=== PATIENT | male | born 1950 | race Caucasian/White ===

== ENCOUNTER 2022-10-10 13:17 | Outpatient (CLI) | payer MEDICARE, SELFPAY ==
--- NOTE | 2022-10-10 13:45 | ECG_ITS ---
Measurements Intervals [place] Rate: 63 P: -24 OR: 235 QRS: -2 QRSD: 102 T: 28 QT: 370 QTc: 382 Interpretive Statements SINUS RHYTHM WITH FIRST DEGREE AV BLOCK BORDERLINE ECG NO PREVIOUS ECG AVAILABLE FOR COMPARISON Electronically Signed On 10-10-2022 14:01:31 CDT by Rahul Gilliland D.O.
== END 2022-10-10 13:18 | disposition home or self-care (01) ==
LOC: ANHSURGERY 13:24
PROVIDERS: Visit Provider Surgery
DX: K40.90 Unilateral inguinal hernia, without obstruction or gangrene, not specified as recurrent (principal); I10 Essential (primary) hypertension; Z01.818 Encounter for other preprocedural examination; I44.0 Atrioventricular block, first degree
CPT/HCPCS: 36415; 86850; 86900; 86901; 93005

== ENCOUNTER 2022-10-13 00:19 | Day surgery (SDC) | payer MEDICARE, SELFPAY ==
--- NOTE | 2022-10-06 13:42 | PC.NURSE ---
Report to the Outpatient Waiting Room, entrance under the green pavilion located off [facility], at time _1230 on date ___10/13/22____. Planned Procedure Time: __1430 . Time changes happen often and if your time is changed the preop area will call you the afternoon before. - You and your visitor will be asked to self-screen and do not enter if you have any COVID symptoms. - Only one visitor is requested with a max of two and NO children visitors are allowed at this time. - The patient visitor may be requested to leave or wait in car when not with patient due to distancing restrictions. - A mask is optional within the hospital at this time. Patients may have clear liquids (water, carbonated beverages, clear teas, apple juice) until 3 hours prior to surgery with a maximum of 20 ounces. - No food from midnight until time of surgery - Infants may have breast milk until 4 hours before surgery, formula 6 hours prior to surgery. - Children will be allowed to drink immediately following surgery. If applicable, please bring a bottle or sippy cup to assist with drinking. Juice, water, soda, and popsicles are readily available. For infants on formula, please bring formula the day of surgery. Pacifiers are allowed. Take the following medications with a SIP of water the morning of surgery: __NONE DO NOT STOP ANY OF YOUR OTHER PRESCRIPTION MEDICATIONS PRIOR TO SURGERY ?EXCEPT THE FOLLOWING Medications to discontinue per physician ALL VITAMINS/SUPPLEMENTS 3 DAYS PRE OP.LAST DOSE 10/09/22__DICLOFENAC PER DR CORONA HIBICLENS SHOWER MORNING OF SURGERY Please no make-up, nail maltese, hairspray, perfume, deodorant, or body powder the day of surgery. No jewelry (including any body piercings) or valuables the day of surgery, leave them at home. Please take a shower or bath the night before, or the morning of, surgery with an antibacterial soap. Wear comfortable, loose fitting clothing. Children are encouraged to wear pajamas. - Jewelry must be removed prior to entering the operating room. Rings and piercings that are not removed may be cut off. - The hospital will not accept responsibility for valuables. - Please leave all valuables, including medications, at home the day of surgery. If you are going home after surgery, a licensed furniture delivery driver must drive you home. - NO public transportation without another adult if you receive anesthesia. - We recommend that an adult stay with you for 24 hours following discharge. - We also recommend that you do not drive, make important decision, drink alcoholic beverages, or take any drugs that were not prescribed by your health care provider for at least 24 hours after your discharge time. Follow any additional instructions given to you from your surgeon. If you or anyone in your household have experienced Covid symptoms in the past week, please notify your surgeon or the nurse liaison at the phone number below for possible testing. Telephone instructions given to __PATIENT and asked if any additional questions and then verbalized understanding. Patient advised to call surgeon office or pre surgery nurse liaison [phone] if any additional questions.
[2022-10-06 13:52] VITALS: BMI 27.5
[2022-10-13] VITALS (8 sets, daily range): BP systolic 138–154; BP diastolic 62–82; PULSE 58–78; RESP 13–16; TEMP 36.3–36.8; O2SAT 98–100
--- NOTE | 2022-10-13 11:45 | PM.IMHP ---
H&P: HPI History of Present Illness Date/Time: 10/13/22 11:45 Chief Complaint: right inguinal hernia Narrative: Pt is a 72 y/o M presenting c R groin bulging, discomfort over last few mos. Pt reports sx progressively worse and now c sx daily. Pt reports sx worse as day goes along and c activity. Pt denies any obstructive sx. Pt had U/S done in [place] confirming RIH. Review of Systems Review of Systems: All systems reviewed & are unremarkable except as noted in HPI and below PMFSH Social History Social History Smoking packs per day: 1 Smoking cigarettes per day: 20.0 Years smoked: 6 Smoking pack-years: 6.00 Smoking status: Former smoker Tobacco type: cigarettes Smoking end date: 07/24/69 Living arrangements: with family Spiritual care concerns: No Comments PMH - HTN, Gout, BPH, GERD, hyperlipidemia PSxH - knee replacement FH - no hernia, no CRC Meds Home Medications and Allergies Home Medications Medication Instructions Recorded Confirmed Type allopurinol 300 mg tablet 300 mg PO DAILY 10/06/22 10/06/22 History diclofenac sodium 75 mg 75 mg PO BID 10/06/22 10/06/22 History tablet,delayed release doxazosin 8 mg tablet 8 mg PO HS 10/06/22 10/06/22 History finasteride 5 mg tablet 5 mg PO DAILY 10/06/22 10/06/22 History multivitamin with minerals 1 tablet PO DAILY 10/06/22 10/06/22 History olmesartan 40 mg tablet 40 mg PO HS 10/06/22 10/06/22 History omega-3 fatty acids 1,000 mg PO BID 10/06/22 10/06/22 History pantoprazole 40 mg tablet,delayed 40 mg PO HS 10/06/22 10/06/22 History release simvastatin 20 mg tablet 20 mg PO HS 10/06/22 10/06/22 History Allergies Allergy/AdvReac Type Severity Reaction Status Date / Time No Known Allergies Allergy Verified 10/06/22 13:27 Exam Const: General: cooperative, comfortable and no acute distress Resp: Auscultation: clear to auscultation bilaterally Cardio: Rate: regular rate Rhythm: regular rhythm GI: Inspection: normal to inspection and non-distended GI Palp: No abdominal tenderness, Yes Soft to palpation, No Tenderness to palpation present (GI), No Guarding due to palpation present (GI), No Rigid due to palpation and Yes Hernia present Other: RIH - reducible Assessment and Plan Assessment and plan (1) Right inguinal hernia: Code(s): K40.90 - Unilateral inguinal hernia, without obstruction or gangrene, not specified as recurrent Status: Acute Assessment and Plan: setup for robotic assisted repair c mesh (2) Hypertension: Code(s): I10 - Essential (primary) hypertension Status: Acute Assessment and Plan: stable, cont home meds (3) GERD (gastroesophageal reflux disease): Code(s): K21.9 - Gastro-esophageal reflux disease without esophagitis Status: Acute Assessment and Plan: stable, cont home meds
[2022-10-13] MEDS: ACETAMINOPHEN 500 MG TABLET 1000 MG PO (12:56)
[2022-10-13] MEDS: KETOROLAC 15 MG/ML VIAL (*BKC) IV PUSH (12:57)
--- NOTE | 2022-10-13 13:00 | P.PNAN_ITS ---
Anes - Initial Pre Proc Eval Procedure: Operation Date: 10/13/22 14:30 Proposed Procedures p Robotic Assisted Laparoscopic Right Inguinal Hernia Repair with Mesh - Rica Self MD Date/Time: 10/13/22 13:00 Surgeon: Rica Self MD Pre Op Diagnosis: inguinal hernia Patient Data Age: 72 Gender: M Height: 1.82 m Weight: 90.75 kg Allergies Allergy/AdvReac Type Severity Reaction Status Date / Time No Known Allergies Allergy Verified 10/06/22 13:27 Home Medications Medication Instructions Recorded Confirmed Type allopurinol 300 mg tablet 300 mg PO DAILY 10/06/22 10/06/22 History diclofenac sodium 75 mg 75 mg PO BID 10/06/22 10/06/22 History tablet,delayed release doxazosin 8 mg tablet 8 mg PO HS 10/06/22 10/06/22 History finasteride 5 mg tablet 5 mg PO DAILY 10/06/22 10/06/22 History multivitamin with minerals 1 tablet PO DAILY 10/06/22 10/06/22 History olmesartan 40 mg tablet 40 mg PO HS 10/06/22 10/06/22 History omega-3 fatty acids 1,000 mg PO BID 10/06/22 10/06/22 History pantoprazole 40 mg tablet,delayed 40 mg PO HS 10/06/22 10/06/22 History release simvastatin 20 mg tablet 20 mg PO HS 10/06/22 10/06/22 History Patient hx anesthesia problems: none Family hx anesthesia problems: none Results Review: All pre-operative results and documents have been reviewed as part of the pre- operative evaluation. [facility] Social History Social History Smoking packs per day: 1 Smoking cigarettes per day: 20.0 Years smoked: 6 Smoking pack-years: 6.00 Smoking status: Former smoker Tobacco type: cigarettes Smoking end date: 07/24/69 Living arrangements: with family Spiritual care concerns: No Anes - Eval Final PreProcedure Day of Procedure 10/13/22 13:00 Patient weight: overweight Heart: regular rate and rhythm Lungs: clear to auscultation Airway: Mallampati scale class II and other (implants) Neurological: alert and oriented Last oral intake: >/= 8 hours ASA classification: II Emergent: no Anesthetic plan: proceed Anesthesia type and monitoring: general ETT and standard monitoring Results Review: All pre-operative results and documents have been reviewed as part of the pre- operative evaluation. Informed Consent: The patient's anesthetic plan and its attendant risks and benefits were discussed with the patient/family/POA. Questions were solicited and answers provided to the satisfaction of the patient/family/POA.
[2022-10-13] MEDS: LACTATED RINGERS 1,000 ML 30 ML IV CONT ×2 (13:03→16:36)
--- NOTE | 2022-10-13 14:25 | WPDHPUPDATE1 ---
History and Physical Update Update Date/Time: 10/13/22 14:25 History and Physical has been reviewed, including an updated exam of the patient. There are NO changes in the patient's condition. Risks, benefits, and alternatives have been discussed and questions answered. Patient agrees to proceed with procedure.
[2022-10-13] MEDS: ceFAZolin 2 GM/D5W 50 ML 2 GM/50 ML BAG IVPB (15:02)
[2022-10-13] MEDS: BUPIVACAINE/EPINEPHRINE 0.25% 50 ML VIAL 30 ML INFILTRATE (15:41)
--- NOTE | 2022-10-13 16:28 | W.PM.PROC2 ---
Procedure Note - Detailed Date of Procedure 10/13/22 Pre-op Diagnosis right inguinal hernia Post-op Diagnosis Same Procedure Performed robotic assisted right inguinal hernia repair with mesh Surgeon Rica Self MD Anesthesia General Indications 72-year-old male with progressively worsening right inguinal hernia over the last few months Findings large indirect right inguinal hernia Description of Procedure Patient was brought into the operating room and placed in the supine position. After adequate induction of general anesthesia, the patient was prepped and draped in normal sterile fashion. A time-out was then done to verify the patient's identity, as well as the procedure being performed. Began by making a 8 mm incision in the supraumbilical region, a Veress needle was then placed into the peritoneal cavity. CO2 gas was then insufflated and after adequate pneumoperitoneum was achieved, the Veress needle was removed. I then placed an 8 mm trocar through this incision. I then placed the endoscope through this trocar site and under direct visualization placed 2 further 8 mm ports in the right and left mid abdomen. The [id number] robot was then docked to the 3 trocar sites. I then scrubbed out and went to the robotic console. Upon examining the pelvis, it was noted that the patient had a large right inguinal hernia. The left side was examined and no hernia defect was noted. I began by making a preperitoneal flap approximately 6 cm superior to the defect. This flap was carried medially past the umbilical ligaments in laterally to the transversalis. It then began dissection of my medial compartment taking this down to the pubic tubercle. I then began the lateral dissection taking this down to the transversalis fascia. Once these compartments were achieved, I began dissection around the cord structures. A large indirect hernia was noted at this point. Using careful dissection, was able to reduce indirect hernia sac off the cord structures. Once this was adequately done, I went ahead and placed a large piece of 3D Max mesh into the abdominal cavity. The mesh was carefully positioned, centering the center of the mesh over the indirect defect. Once this was done, was very satisfied with our repair. Using 3-0 Vicryl sutures, I tacked the mesh medially to Jaren's ligament. Two lateral sutures were placed from the mesh to the transversalis fascia. I then closed the peritoneal flap with a running 2.0 V Lock suture. The abdomen was then desufflated, and all ports were removed. All incisions were then closed with the 4.0 monocryl suture. Dermabond was placed on each wound. The patient tolerated the procedure well, was extubated in the operating room postoperatively, and will now be transferred to the recovery room in stable condition. Implants large 3DMax mesh Estimated Blood Loss 10 Drains No Packing No Pathology None sent Complications No immediate complications Condition Stable Disposition PACU [facility] Billing Surgery - Charge Forward: Surgery Billing
== END 2022-10-13 18:32 | disposition home or self-care (01) ==
PROVIDERS: Visit Provider Surgery
PROC: 8E0Y4CZ Robotic Assisted Procedure of Lower Extremity, Percutaneous Endoscopic Approach (ICD-10-PCS; CPT 49650; principal; 2022-10-13 14:30)
DX: K40.90 Unilateral inguinal hernia, without obstruction or gangrene, not specified as recurrent (principal); I10 Essential (primary) hypertension; K21.9 Gastro-esophageal reflux disease without esophagitis; Z87.891 Personal history of nicotine dependence
CPT/HCPCS: 49650; S2900; A9270; C1781; J0690; J1170; J1885; J2250; J3010; J7030; J7120